=== PATIENT | female | born 1980 | race Caucasian/White ===

== ENCOUNTER → 2017-05-03 13:11 | Outpatient (CLI) | payer OTHER, SELFPAY ==
--- NOTE | 2017-05-03 13:18 | XR_ITS ---
XR ankle RT min 3V HISTORY: ITS.REASON: RT ANKLE PAIN ORDERING PHYSICIAN: Ish Philippe MD PATIENT AGE: 36 years COMPARISON: None FINDINGS: No fracture or dislocation. No lytic or blastic change. There is normal mineralization.. The joint spaces are well-preserved. No significant degenerative/arthritic changes. No erosive changes evident. IMPRESSION: Negative ankle, no acute finding
== END ==
PROVIDERS: PCP Internal Medicine Adolescent Medicine; Visit Provider Internal Medicine Adolescent Medicine
DX: M25.571 Pain in right ankle and joints of right foot (principal)
CPT/HCPCS: 73610

== ENCOUNTER 2019-06-09 11:19 | Outpatient (CLI) | payer BC, SELFPAY ==
[2019-06-09 11:26] VITALS: BMI 32.7
[2019-06-09 11:35] VITALS: BP 129/74; PULSE 88; RESP 18
[2019-06-09 11:44] LABS: Basophils # 0.1 K/mm3 (0-0.2); Basophils % 0.6 % (0.1-2.0); Eosinophils # 0.3 K/mm3 (0.0-0.4); Hematocrit 46.8 % (37.0-47.0); Hemoglobin 15.2 g/dL (12.2-16.2); Lymphocytes # 1.9 K/mm3 (0.7-4.5); Lymphocytes % 23.5 % (10-50); Mean Corpuscular HGB Conc 32.5 g/dL (31.8-35.4); Mean Corpuscular Volume 86.4 fl (81-99); Mean Platelet Volume 7.7 fl (7.4-10.4); Monocytes # 0.5 K/mm3 (0.1-1.0); Monocytes % 5.9 % (1.7-9.3); Neutrophils # 5.6 K/mm3 (1.8-7.8); Neutrophils % 67.1 % (37.0-80.0); Platelet Count 346 K/mm3 (142-424); Red Blood Count 5.42 M/mm3 (4.20-5.40); Red Cell Distribution Width 13.5 % (11.5-17.5); White Blood Count 8.3 K/mm3 (4.8-10.8)
[2019-06-09 11:46] LABS: Chloride 100 mmol/L (98-107); Sodium 141 mmol/L (136-145)
[2019-06-09 11:47] LABS: Potassium 3.1 mmoL/L (3.5-5.1)
[2019-06-09 11:49] LABS: Alanine Aminotransferase 71 U/L (12-78); Albumin Level 4.6 g/dl (3.5-5.0); Albumin/Globulin Ratio 1.2 (1.1-1.8); Alkaline Phosphatase 103 U/L (38-126); Anion Gap 18.1 mEq/L (5-15); Aspartate Amino Transferase 56 U/L (14-36); Bilirubin,Total 0.7 mg/dl (0.2-1.3); Blood Urea Nitrogen 9 mg/dl (7-17); Carbon Dioxide 26 mmol/L (22.0-30.0); Creatinine Clearance Estimated 116 mL/min (50-200); Estimated Glomerular Filt Rate 63 ml/min (>60); GFR (African American) 76 ML/MIN (>60); Globulin 3.9 g/dL (1.3-3.2); Total Protein,Serum 8.5 g/dl (6.3-8.2)
[2019-06-09 11:50] LABS: Calcium 9.6 mg/dl (8.4-10.2); Glucose 101 mg/dl (74-100)
[2019-06-09 12:16] LABS: Adenovirus F 40/41, stool Not Detected (NotDetected); Astrovirus Not Detected (NotDetected); Campylobacter Not Detected (NotDetected); Clostridium Difficile A/B, PCR Not Detected (NotDetected); Cyclospora Cayetanesis Not Detected (NotDetected); Entamoeba histolytica Not Detected (NotDetected); Enteroaggregative E coli Not Detected (NotDetected); Enteropathogenic E coli Not Detected (NotDetected); Enterotoxigenic E coli Not Detected (NotDetected); Giardia lamblia Not Detected (NotDetected); Norovirus Not Detected (NotDetected); Plesimonas Shigalloides, PCR Not Detected (NotDetected); Rotavirus A Not Detected (NotDetected); Salmonella, PCR Not Detected (NotDetected); Sapovirus Not Detected (NotDetected); Shiga-like toxin E coli Not Detected (NotDetected); Shigella Enterovasive E coli Not Detected (NotDetected); Vibrio Cholerae Not Detected (NotDetected); Vibrio, PCR Not Detected (NotDetected); Yersinia Entercolitica, PCR Not Detected (NotDetected)
[2019-06-09 12:42] VITALS: BP 137/71; PULSE 85; RESP 18
[2019-06-09 13:50] VITALS: BP 110/67; PULSE 82; RESP 18
[2019-06-09 14:09] LABS: Cryptosporidium Detected (NotDetected)
== END 2019-06-09 13:53 | disposition home or self-care (01) ==
LOC: INF 11:22
PROVIDERS: PCP Internal Medicine Adolescent Medicine; Visit Provider Internal Medicine Adolescent Medicine
DX: R19.7 Diarrhea, unspecified (principal); R50.9 Fever, unspecified; A07.2 Cryptosporidiosis
CPT/HCPCS: 80053; 85025; 87507; 96360; 96361

== ENCOUNTER → 2020-05-05 09:47 | Outpatient (CLI) | payer BC, SELFPAY ==
--- NOTE | 2020-05-05 09:50 | CT_ITS ---
PROCEDURE: CT ABDOMEN PELVIS W CON CLINICAL INDICATION: UMBILICAL HERNIA W/O OBSTRUCTION AND W/O GANGRENE UMBILICAL HERNIA 75 ML ISO 370 PT HAD CONTRAST REACTION, ITCHING AND HIVES, 250ML SALINE AND [address] WHEELER COMPARISON: No exams were available for comparison TECHNIQUE: IV Contrast: 75ML Isovue 370 Oral Contrast None Axial images obtained with sagittal and coronal reformats. All CT scans at the facility use one or more dose reduction, viz: automated exposure control, ma/kV adjustment per patient size (including targeted exams where dose is matched to indication, i.e. head), or iterative reconstruction technique. A few minutes after IV contrast administration the patient complained of itching and developed hives which were increasing. 50 mg p.o. Benadryl was given and the patient was observed with IV fluids also given. There was no shortness of breath or wheezing. The itching and hives subsided and were decreasing. The patient was observed 30 minutes longer and then left the department in stable condition. FINDINGS: LOWER THORAX: There are mild atelectatic or fibrotic changes in the right middle lobe and lingula. ABDOMEN & PELVIS: Mild fatty liver. The gallbladder, spleen, adrenal glands, pancreas, and kidneys have an unremarkable appearance. There are few scattered small lymph nodes within the mesenteries. No evidence of appendicitis or diverticulitis. There is a small to medium sized umbilical hernia. This contains fat. There is some minimal haziness of the fat deep to the hernia which is nonspecific. No abscess apparent. No evidence of bowel within the hernia. Bowel gas pattern is nonspecific. No intestinal obstruction or free air. No acute bony findings. IMPRESSION: 1. Small medium sized umbilical hernia containing fat with some minimal haziness of the fat deep to the hernia orifice nonspecific. No evidence bowel within the hernia. 2. Mild fatty liver 3. The patient did experience a mild contrast reaction as described above. Dictated by: Kyaw Wheeler MD 05/06/2020 10:55 Kyaw Wheeler MD in [facility] 05/06/2020 10:55
[2020-05-05 10:27] LABS: Chloride 100 mmol/L (98-107); Potassium 3.8 mmoL/L (3.5-5.1); Sodium 138 mmol/L (136-145)
[2020-05-05 10:28] LABS: Basophils # 0.1 K/mm3 (0-0.2); Basophils % 0.9 % (0.1-2.0); Eosinophils # 0.1 K/mm3 (0.0-0.4); Eosinophils % 0.9 % (0.1-12.0); Hematocrit 42.6 % (37.0-47.0); Hemoglobin 14.3 g/dL (12.2-16.2); Lymphocytes # 3.5 K/mm3 (0.7-4.5); Lymphocytes % 38.8 % (10-50); Mean Corpuscular HGB Conc 33.6 g/dL (31.8-35.4); Mean Corpuscular Hemoglobin 29.5 pg (27.0-31.2); Monocytes # 0.4 K/mm3 (0.1-1.0); Monocytes % 4.5 % (1.7-9.3); Neutrophils # 4.9 K/mm3 (1.8-7.8); Platelet Count 329 K/mm3 (142-424); Red Blood Count 4.84 M/mm3 (4.20-5.40); Red Cell Distribution Width 13.8 % (11.5-17.5)
[2020-05-05 10:29] LABS: Alanine Aminotransferase 38 U/L (12-78); Aspartate Amino Transferase 32 U/L (14-36); Blood Urea Nitrogen 13 mg/dl (7-17); Estimated Glomerular Filt Rate 81 ml/min (>60); GFR (African American) 98 ML/MIN (>60)
[2020-05-05 10:30] LABS: Albumin Level 4.4 g/dl (3.5-5.0); Albumin/Globulin Ratio 1.2 (1.1-1.8); Alkaline Phosphatase 99 U/L (38-126); Anion Gap 12.8 mEq/L (5-15); Bilirubin,Total 0.5 mg/dl (0.2-1.3); Calcium 10.2 mg/dl (8.4-10.2); Carbon Dioxide 29 mmol/L (22.0-30.0); Globulin 3.7 g/dL (1.3-3.2); Glucose 108 mg/dl (74-100); Total Protein,Serum 8.1 g/dl (6.3-8.2)
[2020-05-05 11:13] LABS: Hemoglobin A1C 5.5 % (4.0-6.0)
[2020-05-06 09:54] LABS: Hep A Ab, IgM Negative (Negative); Hepatitis B Core Antibody IgM Negative (Negative); Hepatitis B Surface Antigen Negative (Negative)
[2020-05-06 11:34] LABS: Hepatitis C Antibody 0.1 s/co ratio (0.0-0.9)
== END ==
PROVIDERS: PCP Internal Medicine Adolescent Medicine; Visit Provider Internal Medicine Adolescent Medicine
DX: K42.9 Umbilical hernia without obstruction or gangrene (principal); R74.01 Elevation of levels of liver transaminase levels
CPT/HCPCS: 36415; 74177; 80053; 80074; 82565; 83036; 84520; 85025; Q9967

== ENCOUNTER → 2021-01-27 20:18 | Outpatient (CLI) | payer BC, SELFPAY ==
[2021-01-27 20:49] LABS: Alanine Aminotransferase 35 U/L (12-78); Albumin Level 3.9 g/dl (3.5-5.0); Albumin/Globulin Ratio 1.3 (1.1-1.8); Alkaline Phosphatase 93 U/L (38-126); Anion Gap 11.3 mEq/L (5-15); Aspartate Amino Transferase 34 U/L (14-36); Bilirubin,Total 0.4 mg/dl (0.2-1.3); Blood Urea Nitrogen 13 mg/dl (7-17); Calcium 8.6 mg/dl (8.4-10.2); Carbon Dioxide 29 mmol/L (22.0-30.0); Chloride 103 mmol/L (98-107); Chol/HDL Ratio 5.5 (1-3.5); Cholesterol 199 mg/dl (140-200); Estimated Glomerular Filt Rate 94 ml/min (>60); GFR (African American) 113 ML/MIN (>60); Glucose 94 mg/dl (74-100); HDL Cholesterol 36 mg/dl (40-60); Potassium 4.3 mmoL/L (3.5-5.1); Sodium 139 mmol/L (136-145); Total Protein,Serum 6.9 g/dl (6.3-8.2); Triglycerides 99 mg/dl (30-150); VLDL Cholesterol 20 mg/dL (0-40)
[2021-01-27 21:00] LABS: Direct LDL Cholesterol 133.31 mg/dL (100-129)
== END ==
PROVIDERS: Visit Provider Nurse Practitioner Family
DX: Z00.00 Encounter for general adult medical examination without abnormal findings (principal); R73.9 Hyperglycemia, unspecified
CPT/HCPCS: 80053; 80061; 83036

== ENCOUNTER 2021-09-14 17:00 | Outpatient (RCR) | payer BC, SELFPAY ==
--- NOTE | 2021-08-01 16:24 | HMH.PTOPEV ---
PT Outpatient Evaluation Rehab PT Outpatient Evaluation Start: 08/01/21 15:01 Freq: Status: Active Protocol: Document 08/01/21 15:02 MEENU (Rec: 08/01/21 16:23 PDESEROUX [id number]) Electronically Signed By Sy Benton, NANCI 08/01/21 15:02 Outpatient Therapy Subjective History Subjective History Pt. is a 41 year old female who presents to [facility] Out[facility] Services in [place] for the initial evaluation this date( 08/01/21) w/ c/o acute and constant LB and BLE P!, catching, and tingling of insidious onset since last Saturday(07/28/21). Pt. is unable to recall exact mechanism of injury, but states transferring a heavier patient in the ICU last week. However, pt. reports battling intermittent LBP! chronically since she was 32 years of age, but was able to manage it w/ ice and OTC motrin. Pt. currently c's/o catching in her LB w/ standing and bending . Pt. reports not having any symptom relief w/ 5-day Prednisone nor 5-day Flexiril. Pt. reports her leg going to sleep to about mid thigh after standing for ~10'. Pt. denies having any recent diagnostic imaging nor injections for current pathology. 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 Pt. reports being put on restrictions that include no lifting, pulling, nor tugging at this time. Pt. denies being , denies cancer(self) , denies pacemaker, denies latex allergy, reports being allergic to IV contrast. Current medications include
== END 2021-09-19 11:37 | disposition home or self-care (01) ==
LOC: PT.CARL 17:00
PROVIDERS: PCP Internal Medicine Adolescent Medicine; Visit Provider Nurse Practitioner Family
DX: M54.50 Low back pain, unspecified (principal)
CPT/HCPCS: 97010; 97012; 97014; 97110; 97140; 97163; G0283

== ENCOUNTER → 2022-01-09 14:10 | Outpatient (CLI) | payer BC, SELFPAY | PROVIDERS: PCP Internal Medicine Adolescent Medicine; Visit Provider Nurse Practitioner | DX: R06.00 Dyspnea, unspecified (principal); R00.0 Tachycardia, unspecified | CPT/HCPCS: 93270 ==

== ENCOUNTER → 2022-01-19 14:15 | Outpatient (CLI) | payer BC, SELFPAY ==
--- NOTE | 2022-01-19 14:24 | CA_ITS ---
APPROVED REPORT EXAM: Comprehensive 2D, Doppler, and color-flow Echocardiogram Desk Director: Lucrecia Alfredo CRT Ht: 5 ft 7 in Wt: 207lbs BSA: 2.05 BP: 137/72 mmHg Indications: 12-13 WKS PREG , TACHYCARDIA, Shortness of Breath, Diabetes, Palpitations, Hypertension/HDD 2D Dimensions LVOT 1.79 cm (M/F) 1.5-2.5 LA Volume 24.70 mL LA Volume Index 12.00 mL/m2 (M/F) 16-34 M-Mode Dimensions RVDd 2.22 cm (0.9-2.6) LA Diam 3.37 cm (1.9-4.0) LVDd 4.77 cm (3.5-5.7) Ao Diam 3.66 cm (2.0-3.7) LVDs 2.28 cm (3.5-5.7) IVSd 1.22 cm (0.6-1.1) PWd 0.59 cm (0.6-1.1) EF (Teich) 83.30% FS 52.20% EDV (Teich) 106.00 mL TAPSE 2.90 (<1.7) ESV (Teich) 17.70 mL LV Diastology E Decel Time 193.00 (160-240 msec) E/A Ratio 1.32 MED E' 7.40 (< 7 cm/sec) MED A' 9.20 cm/s E'/MED E' Ratio 15.46 (>14) LAT E' 13.20 (<10 cm/sec) LAT A' 10.50 cm/s E/LAT E' Ratio 8.67 (>14) Aortic Valve AO Peak GR. 9.70 mmHg Mitral Valve MV E Max Heath. 114.00 (40-130 cm/s) MV A Velocity 87.00 (40-130 cm/s) E/A Ratio 1.32 MV Decel. Time 193.00 (160-240 ms) MV PHT 57.00 ms Pulmonary Valve PV Peak Velocity 111.00 (50-150 cm/s) Tricuspid Valve TR P. Velocity 189.00 cm/s RAP Estimate 10.00 mmHg RVSP 24.30 mmHg Left Ventricle Left atrium normal size left ventricle is normal size there is no concentric left ventricular hypertrophy, estimated ejection fraction 55% with no regional wall motion abnormality, diastolic parameters are within normal range. Right Ventricle Right atrium and right ventricle are normal size and contractility. Aortic Valve Aortic valve is grossly normal there is no aortic stenosis aortic insufficiency. Mitral Valve Mitral valve grossly normal, there is no mitral stenosis or mitral regurgitation. Tricuspid Valve Tricuspid grossly normal, there is no tricuspid stenosis or tricuspid regurgitation. Pulmonic Valve Pulmonic valve is poorly visualized. Great Vessels Aortic root is normal size. Inferior vena cava normal size with normal inspiratory collapse. Pericardium No significant pericardial effusion noted. Conclusion 1. Normal left ventricular size preserved left ventricular systolic function, estimated ejection fraction 55% with no regional wall motion abnormality, diastolic parameters are within normal range. 2. No significant pericardial effusion noted. 3. Inferior vena cava normal size with normal inspiratory collapse. Electronically signed by : Saúl Ewing MD 01/19/2022 15:00:15
== END ==
PROVIDERS: PCP Internal Medicine Adolescent Medicine; Visit Provider Nurse Practitioner Family
DX: R06.00 Dyspnea, unspecified (principal); R00.0 Tachycardia, unspecified; R94.31 Abnormal electrocardiogram [ECG] [EKG]; Z34.90 Encounter for supervision of normal pregnancy, unspecified, unspecified trimester
CPT/HCPCS: 93306

== ENCOUNTER → 2022-06-06 07:40 | Outpatient (CLI) | payer BC, SELFPAY ==
[2022-06-06 08:45] LABS: Basophils % 0.4 % (0.1-2.0); Eosinophils % 0.3 % (0.1-12.0); Hematocrit 38.4 % (37.0-47.0); Hemoglobin 12.4 g/dL (12.2-16.2); Lymphocytes # 2.5 K/mm3 (0.7-4.5); Lymphocytes % 25.1 % (10-50); Mean Corpuscular HGB Conc 32.3 g/dL (31.8-35.4); Mean Corpuscular Hemoglobin 28.4 pg (27.0-31.2); Mean Platelet Volume 8.8 fl (7.4-10.4); Monocytes # 0.5 K/mm3 (0.1-1.0); Monocytes % 4.8 % (1.7-9.3); Neutrophils # 6.9 K/mm3 (1.8-7.8); Neutrophils % 69.4 % (37.0-80.0); Platelet Count 294 K/mm3 (142-424); Red Blood Count 4.36 M/mm3 (4.20-5.40); Red Cell Distribution Width 15.4 % (11.5-17.5)
[2022-06-06 09:15] LABS: Chloride 109 mmol/L (98-107); Potassium 3.9 mmoL/L (3.5-5.1); Sodium 135 mmol/L (136-145)
[2022-06-06 09:17] LABS: Alanine Aminotransferase 58 U/L (12-78); Aspartate Amino Transferase 40 U/L (14-36); Blood Urea Nitrogen 5 mg/dl (7-17); Estimated Glomerular Filt Rate 111 ml/min (>60); GFR (African American) 135 ML/MIN (>60)
[2022-06-06 09:18] LABS: Albumin Level 3.2 g/dl (3.5-5.0); Albumin/Globulin Ratio 1.1 (1.1-1.8); Alkaline Phosphatase 165 U/L (38-126); Anion Gap 8.9 mEq/L (5-15); Bilirubin,Total 0.5 mg/dl (0.2-1.3); Calcium 8.5 mg/dl (8.4-10.2); Carbon Dioxide 21 mmol/L (22.0-30.0); Globulin 2.8 g/dL (1.3-3.2); Glucose 87 mg/dl (74-100)
[2022-06-06 09:31] LABS: Hemoglobin A1C 5.3 % (4.0-6.0)
[2022-06-06 09:34] LABS: Free T4 (Free Thyroxine) 0.91 ng/dl (0.78-2.19)
[2022-06-06 09:48] LABS: Thyroid Stimulating Hormone 2.12 uIU/mL (0.465-4.68)
[2022-06-07 23:11] LABS: Bile Acids 5.3
== END ==
PROVIDERS: PCP Nurse Practitioner Family; Visit Provider Physician Assistant
DX: E11.9 Type 2 diabetes mellitus without complications (principal); L29.8 Other pruritus; Z34.83 Encounter for supervision of other normal pregnancy, third trimester; Z79.84 Long term (current) use of oral hypoglycemic drugs
CPT/HCPCS: 36415; 80053; 82239; 83036; 84439; 84443; 85025

== ENCOUNTER → 2023-03-26 07:49 | Outpatient (CLI) | payer BC, SELFPAY ==
--- NOTE | 2023-03-26 07:53 | MM_ITS ---
PROCEDURE INFORMATION: Exam: Bilateral Screening 3D Mammography Exam date and time: 03/26/2023 7:53 AM Age: 42 years old Clinical indication: Screening examination TECHNIQUE: Imaging protocol: Bilateral Screening tomosynthesis and 2D mammography including computer-aided detection (CAD) when performed. COMPARISON: No relevant prior studies available. FINDINGS: MAMMOGRAPHY: Breast composition: There are scattered areas of fibroglandular density. Mass: None. Architectural distortion: None. Calcifications: No suspicious calcifications. Asymmetric density: None. Skin thickening: None. Axillary adenopathy: None. IMPRESSION: No mammographic evidence of malignancy. Annual screening is recommended unless otherwise clinically indicated. ASSESSMENT: BI-RADS Category 1: Negative
== END ==
PROVIDERS: PCP Nurse Practitioner Family; Visit Provider Nurse Practitioner Family
DX: Z12.31 Encounter for screening mammogram for malignant neoplasm of breast (principal)
CPT/HCPCS: 77063; 77067

== ENCOUNTER 2024-02-03 09:28 | Outpatient (CLI) | payer BC, SELFPAY ==
--- NOTE | 2024-02-03 09:31 | US_ITS ---
PROCEDURE: US TRANSVAGINAL CLINICAL INDICATION: ABDML BLOATING COMPARISON: CT CT ABDOMEN PELVIS W CON from 05/05/2020 FINDINGS: Transvaginal sonographic images of the pelvis were obtained. UTERUS: 8.3cm x 5.3cmx 4.2cm anteverted with a combined endometrial thickness of 7mm. The endometrium appears trilaminar. There are 2 small nabothian cysts in the cervix. LEFT OVARY: 3.1cmx2.5 cmx2.2cm with a volume of 9ml. There are multiple peripheral follicles giving the ovary a polycystic appearance. There is a dominant follicle measuring 1.4 cm. RIGHT OVARY: 2.9 cmx 2.9 cmx1.9 cm with a volume of 8.1ml. There is a dominant follicle measuring 1.3 cm There are multiple small peripheral follicles. Both ovaries are seen and appear polycystic. Doppler flow to both ovaries are seen. There is no fluid in the cul-de-sac. IMPRESSION: 1. Anteverted uterus normal in shape and size. The endometrium is thin and appears trilaminar. 2. Both ovaries are seen and appear polycystic. Both ovaries have a dominant follicle. 3. No fluid in the cul-de-sac. Dictated by: Sincere Radford MD 02/03/2024 11:39 Sincere Radford MD in [facility] 02/03/2024 11:39
== END 2024-02-03 23:59 | disposition home or self-care (01) ==
LOC: RAD 09:28
PROVIDERS: PCP Nurse Practitioner Family; Visit Provider Nurse Practitioner Family
DX: R14.0 Abdominal distension (gaseous) (principal)
CPT/HCPCS: 76830

== ENCOUNTER 2024-04-22 08:30 | Outpatient (CLI) | payer BC, SELFPAY ==
--- NOTE | 2024-04-22 08:33 | MM_ITS ---
PROCEDURE INFORMATION: Exam: MG Bilateral Screening 3D Mammography Exam date and time: 04/22/2024 8:16 AM Age: 43 years old Clinical indication: Screening examination TECHNIQUE: Imaging protocol: Bilateral Screening tomosynthesis and 2D mammography including computer-aided detection (CAD) when performed. COMPARISON: MG MM DIG SCREENING MAMM BI W/CAD 03/26/2023 7:53 AM FINDINGS: MAMMOGRAPHY: Breast composition: There are scattered areas of fibroglandular density. Mass: None. Architectural distortion: None. Calcifications: No suspicious calcifications. Asymmetric density: None. Skin thickening: None. Axillary adenopathy: None. IMPRESSION: No mammographic evidence of malignancy. Annual screening is recommended unless otherwise clinically indicated. ASSESSMENT: BI-RADS Category 1: Negative.
== END 2024-04-22 23:59 | disposition home or self-care (01) ==
LOC: RAD 08:31
PROVIDERS: PCP Internal Medicine Adolescent Medicine; Visit Provider Nurse Practitioner Family
DX: Z12.31 Encounter for screening mammogram for malignant neoplasm of breast (principal)
CPT/HCPCS: 77063; 77067

== ENCOUNTER 2024-05-21 16:58 | Outpatient (CLI) | payer BC, SELFPAY ==
[2024-05-21 18:07] LABS: Alanine Aminotransferase 18 U/L (12-78); Albumin Level 4.7 g/dl (3.5-5.0); Albumin/Globulin Ratio 1.9 (1.1-1.8); Alkaline Phosphatase 79 U/L (38-126); Anion Gap 14.9 mEq/L (5-15); Aspartate Amino Transferase 21 U/L (14-36); Bilirubin,Total 0.2 mg/dl (0.2-1.3); Blood Urea Nitrogen 15 mg/dl (7-17); Calcium 9.3 mg/dl (8.4-10.2); Carbon Dioxide 26 mmol/L (22.0-30.0); Chloride 105 mmol/L (98-107); Estimated Glomerular Filt Rate 79 ml/min (>60); GFR (African American) 96 ML/MIN (>60); Globulin 2.5 g/dL (1.3-3.2); Glucose 97 mg/dl (74-100); Potassium 3.9 mmoL/L (3.5-5.1); Sodium 142 mmol/L (136-145); Total Protein,Serum 7.2 g/dl (6.3-8.2)
[2024-05-21 18:58] LABS: Vitamin B12 639 pg/mL (239-931)
== END 2024-05-21 23:59 | disposition home or self-care (01) ==
LOC: LAB 16:59
PROVIDERS: PCP Internal Medicine Adolescent Medicine; Visit Provider Specialist
DX: R42 Dizziness and giddiness (principal); H93.12 Tinnitus, left ear; H91.90 Unspecified hearing loss, unspecified ear
CPT/HCPCS: 36415; 80053; 82607; 82746

== ENCOUNTER 2024-05-22 08:03 | Outpatient (CLI) | payer BC, SELFPAY ==
--- NOTE | 2024-05-22 08:03 | MR_ITS ---
FINAL REPORT TECHNIQUE: Multiplanar MR, without and with gadolinium enhancement CLINICAL HISTORY: Vertigo. Hears heartbeat out of left ear. COMPARISON: None FINDINGS: Diffusion sequences show no signal abnormality to indicate acute infarct. No mass, hemorrhage or edema is seen. Ventricles are normal. Major vascular flow voids are intact. Following contrast administration, no mass or abnormal enhancement is seen. IMPRESSION: Unremarkable MR evaluation the brain with contrast Reviewed, Interpreted and Dictated by Lory Ontiveros MD Transcribed by Jojo Tirado Authenticated and [facility]
[2024-05-22] MEDS: SODIUM CHLORIDE 0.9% 10ML SYR (RAD ONLY) 10 ML IV (08:47)
[2024-05-22] MEDS: GADOTERIDOL INJ 20ML SYRINGE 16 ML IV (08:47)
== END 2024-05-22 23:59 | disposition home or self-care (01) ==
LOC: RAD 08:03
PROVIDERS: PCP Internal Medicine Adolescent Medicine; Visit Provider Specialist
DX: R42 Dizziness and giddiness (principal); H93.12 Tinnitus, left ear; H91.90 Unspecified hearing loss, unspecified ear
CPT/HCPCS: 70553; A9576

== ENCOUNTER 2024-09-14 09:47 | Outpatient (CLI) | payer BC, SELFPAY ==
--- NOTE | 2024-09-14 09:54 | XR_ITS ---
FINAL REPORT CLINICAL HISTORY: ACUTE PAIN twisted ankle yesterday swelling, pain, bruised FINDINGS: RIGHT ANKLE 3 views of the right ankle were obtained. There is no acute fracture or dislocation. The mortise is intact. Visualized joint spaces are normally aligned. There is mild degenerative joint disease. Prominent lateral greater than medial soft tissue edema is noted. IMPRESSION: No acute bony abnormality. Reviewed, Interpreted and Dictated by Chelsea Palmer MD Transcribed by Qing Campos Authenticated and [facility]
== END 2024-09-14 23:59 | disposition home or self-care (01) ==
LOC: RAD 09:48
PROVIDERS: PCP Nurse Practitioner Family; Visit Provider Nurse Practitioner Family
DX: G89.11 Acute pain due to trauma (principal); M25.571 Pain in right ankle and joints of right foot
CPT/HCPCS: 73610